=== PATIENT | female | born 1995 | race Two or more races ===

== ENCOUNTER 2024-01-18 18:12 | Emergency (ER) | payer OTHER ==
[~2024-01-18] VITALS: Ht 162.6 cm; Wt 67.0 kg
[2024-01-18 20:39] VITALS: BP 125/86; PULSE 65; RESP 16; TEMP 98.6
[2024-01-18 20:56] VITALS: O2SAT 99
== END 2024-01-18 21:02 | disposition home or self-care (01) ==
LOC: ER 18:12
DX: L72.0 Epidermal cyst (principal)